=== PATIENT | female | born 1965 | race Caucasian/White ===

== ENCOUNTER 2017-09-20 15:53 | Emergency (ER) | payer OTHER ==
--- NOTE | 2017-09-20 16:35 | RAD ---
Indication: Fifth metatarsal pain RIGHT foot following twisting injury. Comparison: No relevant prior exams available on the [facility] [place] PACS for comparison. Technique: AP, lateral, and oblique views RIGHT foot. REPORT AND IMPRESSION: Negative for fracture or articular malalignment. Mild lateral soft tissue swelling from the hind foot through to the forefoot.
--- NOTE | 2017-09-20 16:39 | UC ---
Lower Extremity/Ankle HPI - HPI Summary HPI Summary: 52 yo female presents with right foot pain s/p twisting and falling on her stairs about 20 min [employer]. Has not taken anything for pain. Is able to bear weight , but has significant pain. Denies numbness or tingling. - History of Current Complaint Stated Complaint: FOOT INJURY Time Seen by Provider: 09/20/17 16:03 Hx Obtained From: Patient Hx Last Menstrual Period: 6 mos. Onset/Duration: Sudden Onset Severity Initially: Severe Severity Currently: Severe Pain Intensity: 8 Pain Scale Used: 0-10 Numeric Aggravating Factor(s): Standing, Ambulation Alleviating Factor(s): Rest, Elevation, Ice Able to Bear Weight: Yes - Allergies/Home Medications Allergies/Adverse Reactions: Allergies Allergy/AdvReac Type Severity Reaction Status Date / Time latex Allergy Severe Difficulty Verified 09/20/17 15:57 Breathing Sulfa (Sulfonamide Allergy Severe Difficulty Verified 09/20/17 15:57 Antibiotics) Breathing acetaminophen Allergy Mild GI Upset Verified 09/20/17 15:57 PMH/Surg Hx/FS Hx/Imm Hx Previously Healthy: Yes GI/ History: Gastroesophageal Reflux - Surgical History Surgical History: None - Family History Known Family History: Positive: Other - kidney stones - Social History Occupation: Employed Full-time Lives: With Family Alcohol Use: None Substance Use Type: None Smoking Status (MU): Light Every Day Tobacco Smoker Review of Systems Constitutional: Negative Skin: Negative Respiratory: Negative Cardiovascular: Negative Neurovascular: Negative Musculoskeletal: Other: - Right foot pain Neurological: Negative Psychological: Negative All Other Systems Reviewed And Are Negative: Yes Physical Exam - Summary Physical Exam Summary: GENERAL: NAD. WDWN. No pain distress. SKIN: No rashes, sores, lesions, or open wounds. NECK: Supple. Nontender. No lymphadenopathy. CHEST: No accessory muscle use. Breathing comfortably and in no distress. CV: RRR. Without m/r/g. Pulses intact PT and DP. Brisk cap refill. MSK: RIGHT FOOT: TTP at 5th MT with moderate edema. Strength 5/5. NTTP right ankle with Negative talar tilt. No increased laxity. NEURO: Alert. Sensations intact and symmetric B/L LEs PSYCH: Age appropriate behavior. Triage Information Reviewed: Yes Vital Signs: Vital Signs: Temp Pulse Resp BP Pulse Ox 100 F 101 20 172/97 100 09/20/17 16:36 09/20/17 16:36 09/20/17 16:36 09/20/17 16:36 09/20/17 16:36 Lower Extremity Course/Dx - Course Course Of Treatment: XR: REPORT AND. IMPRESSION: Negative for fracture or articular malalignment. Mild lateral soft tissue. swelling from the hind foot through to the forefoot. Suspect foot sprain. Pt says that her foot is feeling better after applying ice. CAM boot, RICE, and ibuprofen prn. F/u with Sports med if needed. BP is elevated today - no dizziness, headaches, or vision changes. - Differential Dx/Diagnosis Provider Diagnoses: Right foot sprain Discharge - Sign-Out/Discharge Documenting (check all that apply): Discharge/Admit/Transfer - Discharge Plan Condition: Stable Disposition: HOME Patient Education Materials: Foot Sprain (ED) Forms: *Gen. Provider Communication, *Work Release Referrals: Pavan Weeks MD [Medical Doctor] - If Needed Nina Narvaez NP [Primary Care Provider] - Additional Instructions: If you develop a fever, shortness of breath, chest pain, new or worsening symptoms - please call your PCP or go to the ED. Your blood pressure was high at todays visit. Please see your primary provider within 4 weeks for recheck and re-evaluation. 1) Rest, Ice, and elevate your foot as much as possible over the next 2-3 days 2) MAy take 600mg ibuprofen every 6-8hours as needed for pain - Billing Disposition and Condition Condition: STABLE Disposition: HOME
[2017-09-20 16:42] VITALS: BP 172/97
== END 2017-09-20 17:15 | disposition home or self-care (01) ==
LOC: UCEAST 15:53
DX: S93.601A Unspecified sprain of right foot, initial encounter (principal); W10.9XXA Fall (on) (from) unspecified stairs and steps, initial encounter; Y93.9 Activity, unspecified; Y92.9 Unspecified place or not applicable; K21.9 Gastro-esophageal reflux disease without esophagitis; Z87.442 Personal history of urinary calculi; Z88.2 Allergy status to sulfonamides; Z88.6 Allergy status to analgesic agent; Z91.040 Latex allergy status; F17.200 Nicotine dependence, unspecified, uncomplicated
CPT/HCPCS: 99211; G0463